=== PATIENT | male | born 2000 | race Two or more races ===

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

== ENCOUNTER 2019-06-01 13:52 | Emergency (ER) | payer OTHER ==
[2019-06-01] MEDS ORDERED: Acetaminophen TAB* 325 MG PO ONE (13:54)
[2019-06-01] MEDS ORDERED: Ibuprofen TAB* 600 MG PO ONE (13:54)
--- NOTE | 2019-06-01 14:02 | ED ---
Influenza-Like Illness - HPI Summary HPI Summary: This pt is a 19 y/o male presenting to [facility] via EMS for chills, headache, nausea, vomiting, dizziness since yesterday. Pt reports he is not feeling well. He describes 3 episodes of vomiting. He states he also has sore throat, diaphoresis, developed a cough and chest discomfort. Denies fever or diarrhea. Per EMS, pt rates chest discomfort 9/10. Pt has been taking OTC flu and cold medicine, the last time he took it was 1 hour ago with no relief. Pt has sick contact at home, his older sister. He did not get the flu shot this year. PMHx: asthma. He reports he does not have an inhaler at home. Denies tobacco, drug, and alcohol use. Medications reviewed. Allergies noted. - History of Current Complaint Chief Complaint: EDFluSymptoms Hx Obtained From: Patient Onset/Duration: Lasting Days - 1, Still Present Severity: Mild Associated Signs & Symptoms: F/C - chills, Cough, Sore Throat, Headache, Vomiting Related Hx: Possible Flu/Infectious Exposure - sick contact, older sister - Allergy/Home Medications Allergies/Adverse Reactions: Allergies Allergy/AdvReac Type Severity Reaction Status Date / Time amoxicillin Allergy Rash Verified 06/01/19 14:20 PMH/Surg Hx/FS Hx/Imm Hx Respiratory History: Reports: Hx Asthma Infectious Disease History: No Infectious Disease History: Denies: Traveled Outside the [place] in Last 30 Days - Family History Known Family History: Negative: Respiratory Disease - Social History Alcohol Use: None Substance Use Type: Reports: None Smoking Status (MU): Never Smoked Tobacco Review of Systems Positive: Chills, Skin Diaphoresis. Negative: Fever Positive: Sore Throat Positive: Chest Pain Positive: Cough Positive: Vomiting, Nausea. Negative: Diarrhea Neurological: Other - POSITIVE: dizziness Positive: Headache All Other Systems Reviewed And Are Negative: Yes Physical Exam - Summary Physical Exam Summary: Constitutional: Well-developed, Well-nourished, Alert. (-) Distressed Skin: Warm, Dry HENT: Normocephalic; Atraumatic Eyes: Conjunctiva normal Neck: Musculoskeletal ROM normal neck. (-) JVD, (-) Stridor, (-) Tracheal deviation Cardio: Rhythm regular, Borderline tachycardia, Heart sounds normal; Intact distal pulses; The pedal pulses are 2+ and symmetric. Radial pulses are 2+ and symmetric. (-) Murmur Pulmonary/Chest wall: Effort normal. (-) Respiratory distress, (-) Rales. Wheezing worse on the right lung field. Abd: Soft, (-) tenderness, (-) Distension, (-) Guarding, (-) Rebound Musculoskeletal: (-) Edema Lymph: (-) Cervical adenopathy Neuro: Alert, Oriented x3 Psych: Mood and affect Normal Triage Information Reviewed: Yes Vital Signs On Initial Exam: Initial Vitals Temp Pulse Resp BP Pulse Ox 99.2 F 101 20 142/97 96 06/01/19 13:55 06/01/19 13:55 06/01/19 13:55 06/01/19 13:55 06/01/19 13:55 Vital Signs Reviewed: Yes Procedures - Sedation Patient Received Moderate/Deep Sedation with Procedure: No Diagnostics - Vital Signs Vital Signs Temp Pulse Resp BP Pulse Ox 06/01/19 13:55 99.2 F 101 20 142/97 96 - Laboratory Lab Statement: Any lab studies that have been ordered have been reviewed, and results considered in the medical decision making process. - Radiology Chest XR Radiology Interpretation Completed By: Radiologist Summary of Radiographic Findings: IMPRESSION: No radiographic evidence of acute cardiopulmonary disease. Dr. Snow has reviewed this report. Flu Symptom Course/Dx - Course Course Of Treatment: Patient is here with influenza that was diagnosed today. Patient is afebrile and tachycardic which improved with antipyretic medication. Patient had negative chest x-ray for pneumonia. Patient was discharged on Tamiflu as he has underlying asthma. - Diagnoses Provider Diagnoses: Influenza, Cough, Vomiting Discharge ED - Sign-Out/Discharge Documenting (check all that apply): Patient Departure - Discharge home - Discharge Plan Condition: Stable Disposition: HOME Prescriptions: Ondansetron HCl [Zofran] 4 mg PO 12 PRN #12 tablet PRN Reason: Vomiting Oseltamivir CAP* [Tamiflu CAP*] 75 mg PO BID 5 Days #9 cap Patient Education Materials: Influenza (ED) Forms: *Work Release Referrals: Karson Moseley MD [Primary Care Provider] - Additional Instructions: Take medications as prescribed. The flu medicine will make you have worsening vomiting and diarrhea, this is the normal side effect of the medicine. Take Tylenol and Ibuprofen for the pain. PLEASE RETURN TO EMERGENCY DEPARTMENT FOR TROUBLE BREATHING, DIFFICULTY WALKING , OR YOU CANNOT DRINK ANYTHING FOR 12 HOURS. Please follow up with your primary care physician. Please make all follow-ups in 1-3 days unless I advise you otherwise. - Billing Disposition and Condition Condition: STABLE Disposition: Home - Attestation Statements Document Initiated by Yu: Yes Documenting Scribe: Alesha Vincent Provider For Whom Scribe is Documenting (Include Credential): Hadley Snow MD Scribe Attestation: IAlesha, scribed for Hadley Snow MD on 06/01/19 at 1835. Scribe Documentation Reviewed: Yes Provider Attestation: The documentation as recorded by the Alesha florez accurately reflects the service I personally performed and the decisions made by me, Hadley Snow MD Status of Scribe Document: Viewed
[2019-06-01 14:29] LABS: Influenza B Molecular POSITIVE (Negative)
[2019-06-01] MEDS ORDERED: Oseltamivir CAP* 75 MG CAP PO ONE (14:31)
[2019-06-01 15:12] VITALS: BP 140/80
== END 2019-06-01 15:10 | disposition home or self-care (01) ==
LOC: ED 13:52
DX: J10.1 Influenza due to other identified influenza virus with other respiratory manifestations (principal); J45.909 Unspecified asthma, uncomplicated; Z88.0 Allergy status to penicillin; R11.10 Vomiting, unspecified
CPT/HCPCS: 71046; 99283; A9270-GY